=== PATIENT | female | born 1950 | race Caucasian/White ===

== ENCOUNTER 2023-09-07 14:18 | Outpatient (CLI) | payer MEDICARE, SELFPAY ==
--- NOTE | ~2023-09-07 | CT_ITS ---
CT Scan of the Chest without Contrast: Clinical Indication: Lung cancer screening, smoking history Technique: Contiguous sections were acquired throughout the chest without intravenous contrast. Dose reduction technique was used on this scan by utilizing automated exposure control and iterative recon struction technique. The dose-length product (DLP) was 112.01 mGy-cm. Findings: There is no evidence of any significant mediastinal, hilar or axillary lymphadenopathy. Small calcifi ed mediastinal nodes are present. There are atherosclerotic calcifications of the aorta and coronary arteries.. There is no evidence of pleural or pericardial effusion. Large calcified right lower lobe granuloma is present. Images through the upper abdomen reveal no abnormalities. Impression: Lung RADS 2: Benign appearance. 12 month follow-up screening CT advised. Reviewed, dictated and finalized at location . Y REP Impression: Lung RADS 2: Benign appearance. 12 month follow-up screening CT advised.
== END 2023-09-07 14:19 | disposition home or self-care (01) ==
PROVIDERS: PCP Family Medicine; Visit Provider Family Medicine
DX: Z12.2 Encounter for screening for malignant neoplasm of respiratory organs (principal); F17.210 Nicotine dependence, cigarettes, uncomplicated
CPT/HCPCS: 71271

== ENCOUNTER 2023-09-10 13:25 | Outpatient (CLI) | payer MEDICARE, SELFPAY ==
--- NOTE | 2023-09-10 13:29 | ECHO_ITS ---
Patient Info Name: Shahida Yang Age: 73 years : 1950 Gender: Female Ht: 62 in Wt: 180 lbs BSA: 1.92 m2 HR: 69 bpm BP: 133 / 70 mmHg Heart Rhythm: Sinus Rhythm Technical Quality: Fair Exam Date: 09/10/2023 1:58 PM Exam Location: Echo Lab Patient Status: Outpatient Admit Date: 09/10/2023 Staff Ordering Physician: Yi Ryan MD Knockdown Man: Laura Gil RDCS Attending Provider: Yi Ryan MD Referring Physician: Shelby MANDUJANO; Exam Type: CA echo doppler color flow Study Info Indications R01.1 - Cardiac murmur, unspecified Complete two-dimensional, color flow and Doppler transthoracic echocardiogram is performed. Summary 1. Complete two-dimensional, color flow and Doppler transthoracic echocardiogram is performed. 2. Normal left and right ventricular size and systolic function. 3. Mildly calcified mitral valve annulus. 4. Trivial aortic and pulmonic regurgitation. 5. Mild tricuspid regurgitation. Left Ventricle Left ventricular chamber dimension is normal. Left ventricular systolic function is normal, estimated at 60-65%. The left ventricular diastolic function is normal. Right Ventricle Right ventricular chamber dimension is normal. Left Atria Left atrial chamber dimension is mildly enlarged. Right Atria Right atrial chamber dimension is normal. Aortic Valve The aortic valve is normal. There is trace aortic valve regurgitation. Pulmonic Valve The pulmonic valve is normal. There is trace pulmonic regurgitation. Mitral Valve The mitral valve has normal leaflets. Tricuspid Valve The tricuspid valve leaflets are normal. There is mild tricuspid valve regurgitation. Pericardium/Pleural The pericardium appears normal. Aorta The aortic root size at the sinus of Valsalva is normal. Left Ventricular Outflow Tract Name Value Normal LVOT 2D LVOT Diameter 2.0 cm LVOT Doppler LVOT Peak Gradient 5 mmHg LVOT Mean Gradient 3 mmHg LVOT VTI 24 cm LVOT VTI/AV VTI Ratio 0.8 LVOT Stroke Volume 75 ml LVOT CO 14.5 l/min LVOT CI 7.6 l/min/m2 Pulmonic Valve Name Value Normal RVOT Doppler RVOT Peak Gradient 1 mmHg PV Doppler PV Peak Gradient 3 mmHg PV Regurgitation Doppler UT Peak End Diastolic Velocity 133 cm/s Mitral Valve Name Value Normal MV Doppler
== END 2023-09-10 13:26 | disposition home or self-care (01) ==
PROVIDERS: PCP Family Medicine; Visit Provider Family Medicine
DX: R01.1 Cardiac murmur, unspecified (principal); I08.3 Combined rheumatic disorders of mitral, aortic and tricuspid valves
CPT/HCPCS: 93306